=== PATIENT | female | born 1985 | race Caucasian/White ===

== ENCOUNTER 2018-08-02 15:07 | Inpatient (IN) ==
[2018-08-02 16:00] LABS: BASO# 0.03 X1000 (0.0-0.2); BASO% 0.4 % (0.0-0.8); EOS# 0.12 X1000 (0.0-0.7); EOS% 1.4 % (0.0-10.0); HEMATOCRIT 39.2 % (37.0-47.0); IMM GRAN# 0.01 X1000 (0.0-0.04); IMM GRAN% 0.1 % (0.0-0.5); LYMPH# 2.65 X1000 (1.2-3.4); LYMPH% 31.7 % (20.5-51.1); MCH 30.2 PG (27-31); MCHC 33.2 g/dL (33-37); MPV 10.4 FL (7.4-10.4); NEUT# 5.05 X1000 (1.4-6.5); NEUT% 60.4 % (42.2-75.2); PLT 284 X1000 (130-400); RBC 4.31 XMIL (4.2-5.4); RDW 12.7 % (11.5-14.5); WBC 8.36 X1000 (4.8-10.8)
[2018-08-02 16:29] LABS: BILIRUBIN URINE NEGATIVE (NEGATIVE); BLOOD URINE 3+ (NEGATIVE); CLARITY CLEAR (CLEAR); COLOR YELLOW; GLUCOSE URINE NEGATIVE (NEGATIVE); KETONE URINE TRACE mg/dL (NEGATIVE); LEUKOCYTES URINE TRACE (NEGATIVE); NITRITE URINE NEGATIVE (NEGATIVE); PROTEIN URINE NEGATIVE (NEGATIVE); SP GRAVITY URINE 1.015; UROBILINOGEN URINE NORMAL
[2018-08-02 16:29] LABS: AGAP 13; ALBUMIN 4.2 g/dL (3.5-5.0); ALKALINE PHOSPHATASE 49 U/L (32-104); BUN 11 mg/dL (8-22); CALCIUM 8.5 mg/dL (8.8-10.2); CHLORIDE 100 mmol/L (98-107); COSMO 280; CREATININE 0.7 mg/dL (0.5-0.9); ESTIMATED GFR > 60; GLUCOSE 119 mg/dL (70-104); GOT 15 U/L (10-30); GPT 7 U/L (10-36); LIPASE 23 U/L (13-60); POTASSIUM 3.5 mmol/L (3.5-5.1); SODIUM 140 mmol/L (136-145); TCO2 27 mmol/L (25-35); TOTAL PROTEIN 7.4 g/dL (6.3-8.3)
[2018-08-02 16:30] LABS: URINE CAST NONE SEEN /LPF; URINE RBC <10 /HPF (<10); URINE SOURCE CLEAN CATCH; URINE WBC <10 /HPF (<10); URINE YEAST NONE SEEN /HPF
[2018-08-02 16:32] LABS: URINE CRYSTAL NONE SEEN /HPF; URINE EPITHELIAL CELLS >10 /HPF (<10)
[2018-08-02 16:33] LABS: URINE BACTERIA 1+ /HFP
[2018-08-02] MEDS ORDERED: TORADOL IV ONE (16:36)
--- NOTE | 2018-08-02 16:45 | PROVIDER DOCUMENTATION ---
HPI-Abdominal Pain/GI Problem - General Chief Complaint: Abdominal Pain Stated Complaint: ABD PAIN Time Seen by Provider: 08/02/18 16:23 Allergies/Adverse Reactions: Patient Allergies Allergy/AdvReac Type Severity Reaction Status Date / Time No Known Allergies Allergy Verified 07/15/15 15:37 Home Medications: Home Medication List Medication Instructions Recorded Confirmed Last Taken Type NK [No Home Medications] 08/02/18 08/02/18 Unknown History - History of Present Illness-ABD Nature of Presenting Problems: reports that she has a sudden sharp radiating pain of her RLQ area to the right leg this morning. pain also radiates tto the right flank. no gross hematuria seen. no dysuria. she reports that she does have menstrual cramping before her period. had a normal BM. +nausea, chills. Review of Systems - Adult - REVIEW OF SYSTEMS - ADULT Constitutional: reports: no symptoms reported Eyes: reports: no symptoms reported Ears, Nose, Mouth & Throat: reports: no symptoms reported Cardiovascular: reports: no symptoms reported Respiratory: reports: no symptoms reported Gastrointestinal: reports: no symptoms reported Genitourinary: reports: no symptoms reported Musculoskeletal: reports: no symptoms reported Integumentary: reports: no symptoms reported Neurological: reports: no symptoms reported Psychiatric: reports: no symptoms reported Endocrine: reports: no symptoms reported Hematologic/Lymphatic: reports: no symptoms reported Allergic/Immunologic: reports: no symptoms reported All Other Systems: Reviewed and Negative Past History - Adult - PAST MEDICAL HISTORY-ADULT Review of Records: reports: Old Records Reviewed, Nursing Assessment Review, Medications Reviewed, Social history reviewed & non-contributory. Major Childhood Illnesses: reports: denies history Cardiovascular: reports: denies history Respiratory: reports: denies history Gastrointestinal: reports: denies history Obstetrical/Gynecological: reports: denies history Genitourinary: reports: denies history Musculoskeletal: reports: denies history Neurological: reports: denies history Endocrine/Immune: reports: denies history Other Conditions: reports: denies history - IMMUNIZATION STATUS Childhood Immunizations: See Nurse Assessment Flu Vaccine: See Nurse Assessment - FAMILY HISTORY Family History: reviewed, not pertinent - SOCIAL HISTORY Smoking: less than 1 pack/day Provider spent 3-5 mins advising pt. on dangers of tobacco.: Discussed manners to quit use, and f/u contacts for add'l counseling. Substance Use: none/never Alcohol Use Frequency: never Living Situation: family Physical Exam-General - PHYSICAL EXAM-ADULT Initial Vital Signs Reviewed: Yes - CONSTITUTIONAL General Appearance: appears well, alert, no apparent distress - EYES Eyes: PERRL/EOMI, pink conjunctivae - HEAD, EARS, NOSE, MOUTH & THROAT HENMT: normocephalic/atraumatic, moist mucous membranes - NECK Neck: non-tender, full range of motion - RESPIRATORY Respiratory: chest non-tender, lungs clear, normal breath sounds - CARDIOVASCULAR Cardiovascular: normal peripheral pulses, tachycardia - GASTROINTESTINAL (ABDOMEN) Abdominal Exam: normal bowel sounds, soft, no organomegaly, no pulsatile mass, tenderness (RLQ) - LYMPHATIC Lymphatic: no adenopathy - MUSCULOSKELETAL Back Exam: normal inspection, CVA tenderness (right) Extremity: normal range of motion, non-tender, normal gait Peripheral Pulses: radial (R): 2+, radial (L): 2+, dorsalis-pedis (R): 2+, dorsalis-pedis (L): 2+ - SKIN Integumentary: normal color, normal turgor, warm/dry - NEUROLOGIC Neurologic: grossly normal, no motor/sensory deficits Progress - PLAN OF CARE/RESULTS Progress/Plan/Lab Results: Vital Signs - 8 hr 08/02/18 15:17 Temperature 98.7 F Pulse Rate 94 H Respiratory Rate 18 Blood Pressure 125/81 O2 Sat by Pulse Oximetry 100 Laboratory Results - last 24 hr 08/02/18 08/02/18 08/02/18 15:20 15:20 15:20 WBC 8.36 RBC 4.31 Hgb 13.0 Hct 39.2 MCV 91.0 MCH 30.2 MCHC 33.2 RDW Std Deviation 12.7 Plt Count 284 MPV 10.4 Immature Gran % (Auto) 0.1 Neut % (Auto) 60.4 Lymph % (Auto) 31.7 [place] % (Auto) 6.0 Eos % (Auto) 1.4 Baso % (Auto) 0.4 Immature Gran # (Auto) 0.01 Neut # (Auto) 5.05 Lymph # (Auto) 2.65 [place] # (Auto) 0.50 Eos # (Auto) 0.12 Baso # (Auto) 0.03 Sodium 140 Potassium 3.5 Chloride 100 Carbon Dioxide 27 Anion Gap 13 BUN 11 Creatinine 0.7 Estimated GFR/1.73 m2 > 60 BUN/Creatinine Ratio 16 Glucose 119 H Calculated Osmolality 280 Calcium 8.5 L Total Bilirubin 0.20 AST 15 ALT 7 L Alkaline Phosphatase 49 Total Protein 7.4 Albumin 4.2 Globulin 3.0 Albumin/Globulin Ratio 1.0 Amylase 47 Lipase 23 Urine Source Urine Color Urine Clarity Urine pH Ur Specific [place] Urine Protein Urine Ketones Urine Blood Urine Nitrite Urine Bilirubin Urine Urobilinogen Urine Microscopic RBC Urine WBC Urine Microscopic WBC Ur Epithelial Cells Urine Crystals Urine Bacteria Urine Casts Urine Yeast Urine Glucose Urine Test 08/02/18 08/02/18 15:23 15:23 WBC RBC Hgb Hct MCV MCH MCHC RDW Std Deviation Plt Count MPV Immature Gran % (Auto) Neut % (Auto) Lymph % (Auto) [place] % (Auto) Eos % (Auto) Baso % (Auto) Immature Gran # (Auto) Neut # (Auto) Lymph # (Auto) [place] # (Auto) Eos # (Auto) Baso # (Auto) Sodium Potassium Chloride Carbon Dioxide Anion Gap BUN Creatinine Estimated GFR/1.73 m2 BUN/Creatinine Ratio Glucose Calculated Osmolality Calcium Total Bilirubin AST ALT Alkaline Phosphatase Total Protein Albumin Globulin Albumin/Globulin Ratio Amylase Lipase Urine Source CLEAN CATCH Urine Color YELLOW Urine Clarity CLEAR Urine pH 9.0 Ur Specific [place] 1.015 Urine Protein NEGATIVE Urine Ketones TRACE Urine Blood 3+ A Urine Nitrite NEGATIVE Urine Bilirubin NEGATIVE Urine Urobilinogen NORMAL Urine Microscopic RBC <10 Urine WBC TRACE A Urine Microscopic WBC <10 Ur Epithelial Cells >10 A Urine Crystals NONE SEEN Urine Bacteria 1+ Urine Casts NONE SEEN Urine Yeast NONE SEEN Urine Glucose NEGATIVE Urine Test NEGATIVE Orders Category Date Time Status CT ABD/PELVIS W/IV CONT ONLY [CT] Stat Exams 08/02/18 16:35 Ordered AMYLASE [CHEM] Stat Lab 08/02/18 15:20 Completed CBC WITH DIFF [HEME] Stat Lab 08/02/18 15:20 Completed COMPREHENSIVE METABOLIC PANEL [CHEM] Stat Lab 08/02/18 15:20 Completed LIPASE [CHEM] Stat Lab 08/02/18 15:20 Completed TEST-URINE [PREG] Stat Lab 08/02/18 15:[address] W/POSS RFLX CULT [URINALYSIS] Stat Lab 08/02/18 15:23 Completed URINE CULTURE [RM] Routine Lab 08/02/18 16:30 Ordered Ketorolac [Toradol] Med 08/02/18 16:36 Discontinued 30 mg IV NOW ONE [facility] [address] , [address], [place] [address] Department of Imaging Patient: SHANE LARSON ADM Date: 08/02/18 MR#: [id number] : 1985 ADM Status: REG ER Age/Sex: 32/F Room/Bed: Loc: P.ED Ordering Physician: Dana Cai MD Family Physician: Arabella Arana Reason for Procedure: ovarian torsion Signed EXAM: US PELVIC NON-OB COMPLETE INDICATION: ovarian torsion TECHNIQUE: COMPARISON: 07/15/2015 FINDINGS: The uterus is grossly normal in echotexture measuring 8.4 x 6.1 x 4.8 cm. The endometrium measures 4 mm in thickness. There are a couple of prominent ovarian cysts on the right that were also seen on a recent CT. The largest cyst contains internal debris. The largest cyst measures 3.8 cm. The smaller cyst measures 2.9 cm in the greatest dimensions. The right ovary including the cysts measures 7.3 cm in the greatest dimension. The left ovary measures 1.6 cm in the greatest dimension. There is some Doppler flow associated with the right ovary. There is Doppler flow associated with both ovaries. However, it it may be somewhat diminished on the right as compared to the left. No solid adnexal masses are appreciated. There is trace pelvic free fluid, usually physiologic. IMPRESSION: Prominent right ovarian cysts. Although the right ovary exhibits Doppler flow, it appears slightly less than the left. Mild intermittent torsion is possible in the right clinical scenario. Electronically signed by Ronn Chase 08/02/2018 7:43 PM 08/02/181942 Interpreting Physician: Ronn Chase MD Dictated Date/Time: 08/02/181934 cc: Dana Cai MD; Arabella Arana [facility] [address], [address], [place] [address] Department of Imaging Patient: SHANE LARSON ADM Date: 08/02/18 MR#: [id number] : 1985 ADM Status: REG ER Age/Sex: 32/F Room/Bed: Loc: P.ED Ordering Physician: Dana Cai MD Family Physician: Arabella Arana Reason for Procedure: nephroliathisis, pyeloneph, appendicitis ____ Signed EXAM: CT ABD/PELVIS W/IV CONT ONLY INDICATION: nephrolithiasis, pyeloneph, appendicitis TECHNIQUE: This exam was performed using automated exposure control, adjustment of mA or kV according to patient size, and/or use of iterative reconstruction technique. COMPARISON: None available. FINDINGS: The liver, gallbladder, spleen, pancreas, and adrenal glands are unremarkable. The kidneys are grossly unremarkable. There is no hydronephrosis. No perinephric stranding is identified. The urinary bladder appears normal. The appendix is normal. The remainder of the GI tract is unremarkable. There are a couple of large right pelvic cyst, likely ovarian. One measures up to 4.1 cm. The other measures up to 3.8 cm. The remainder of the reproductive tract is unremarkable as imaged. IMPRESSION: Two large right adnexal cysts as described. Unremarkable CT of the abdomen and pelvis, otherwise. Electronically signed by Ronn Chase 08/02/2018 6:13 PM 08/02/18 1813 Interpreting Physician: Ronn Chase MD Dictated Date/Time: 08/02/18 1807 cc: Dana Cai MD; Arabella Arana Result Diagrams: 08/02/18 15:20 08/02/18 15:20 - REASSESSMENT Reassessment #1 Time Reassessed: 19:00 (controlling with morphine. ) Status: improving Reassessment #2 Time Reassessed: 20:02 (ct shows less flow to the right ovary, spoke with flavor room worker service Dr. Benites recommended inpatient observation admitting by hospitalist service. Spoke with Dr. Chavira agrees admit patient. ) Departure - Departure Date of Disposition Decision: 08/02/18 Time of Disposition Decision: 16:44 DIAGNOSIS: Tobacco abuse disorder, Right lower quadrant abdominal pain Disposition: ADMITTED INPATIENT 09 Certified Medical Emergency: Emergent Condition: Stable Referrals and Follow-Ups: Arabella Arana [Primary Care Provider] - Call for Appoint. 1-2days - Critical Care Note This patient required my direct & personal management of CC.: No Attestation - Physician/ HUSSEIN Attestation Patient care was provided by Advanced Practice Provider:: No The physician spent face to face time with patient:: Yes Advanced Practice Provider documentation review:: Supervising physician onsite and consulted in the evaluation and care of this patient. The physician did have a face to face encounter with the patient.
[2018-08-02] MEDS ORDERED: MORPHINE IV ONE ×2 (17:50→23:39)
--- NOTE | 2018-08-02 18:15 | Diag Imaging Result Doc PS360 ---
EXAM: CT ABD/PELVIS W/IV CONT ONLY INDICATION: nephrolithiasis, pyeloneph, appendicitis TECHNIQUE: This exam was performed using automated exposure control, adjustment of mA or kV according to patient size, and/or use of iterative reconstruction technique. COMPARISON: None available. FINDINGS: The liver, gallbladder, spleen, pancreas, and adrenal glands are unremarkable. The kidneys are grossly unremarkable. There is no hydronephrosis. No perinephric stranding is identified. The urinary bladder appears normal. The appendix is normal. The remainder of the GI tract is unremarkable. There are a couple of large right pelvic cyst, likely ovarian. One measures up to 4.1 cm. The other measures up to 3.8 cm. The remainder of the reproductive tract is unremarkable as imaged. IMPRESSION: Two large right adnexal cysts as described. Unremarkable CT of the abdomen and pelvis, otherwise. Electronically signed by Ronn Chase 08/02/2018 6:13 PM
--- NOTE | 2018-08-02 19:45 | Diag Imaging Result Doc PS360 ---
EXAM: US PELVIC NON-OB COMPLETE INDICATION: ovarian torsion TECHNIQUE: COMPARISON: 07/15/2015 FINDINGS: The uterus is grossly normal in echotexture measuring 8.4 x 6.1 x 4.8 cm. The endometrium measures 4 mm in thickness. There are a couple of prominent ovarian cysts on the right that were also seen on a recent CT. The largest cyst contains internal debris. The largest cyst measures 3.8 cm. The smaller cyst measures 2.9 cm in the greatest dimensions. The right ovary including the cysts measures 7.3 cm in the greatest dimension. The left ovary measures 1.6 cm in the greatest dimension. There is some Doppler flow associated with the right ovary. There is Doppler flow associated with both ovaries. However, it it may be somewhat diminished on the right as compared to the left. No solid adnexal masses are appreciated. There is trace pelvic free fluid, usually physiologic. IMPRESSION: Prominent right ovarian cysts. Although the right ovary exhibits Doppler flow, it appears slightly less than the left. Mild intermittent torsion is possible in the right clinical scenario. Electronically signed by Ronn Chase 08/02/2018 7:43 PM
[2018-08-02] MEDS ORDERED: MORPHINE IV PRN (20:11)
[2018-08-03] MEDS: MORPHINE IV PRN ×2 (03:25→09:35)
[2018-08-03 07:46] VITALS: BP 92/56
--- NOTE | 2018-08-03 15:16 | CONSULTATION ---
DATE OF CONSULTATION: 08/03/2018 CHIEF COMPLAINTS: Abdominal pain. HISTORY OF PRESENT ILLNESS: The patient had episodes of intermittent sharp, stabbing pain yesterday which gradually worsened to severe. She came to the ER for her pain, had a CT exam that was negative for any acute abdomen, was considered unremarkable. She also underwent a pelvic ultrasound, which showed blood flow to both ovaries, a slight difference between the right versus left and a comment that stated the mild intermittent torsion is possible in the right clinical scenario. The patient stayed overnight for observation and has a much reduced pain level this morning. She states that her pain is right lower quadrant, travels to her back and down her leg, does so in intermittent fashion. She has not had any sharp pain since 3 a.m. PAST MEDICAL HISTORY: The patient denies. PAST SURGICAL HISTORY: She had a brain surgery at age 4, status post trauma to remove a hematoma. MEDICINE: She takes Ortho Tri-Cyclen Lo for control. ALLERGIES: She denies allergies. OB HISTORY: She is a G5, P2-0-3-2. She had 3 spontaneous abortions, 2 term vaginal deliveries. COMPUTER AIDE HISTORY: She has had abnormal Paps in the past. She was treated with cryo over a year ago. Her most recent [facility] She states it was normal. She has a long ago history of Chlamydia which was treated. No current STDs. SOCIAL HISTORY: She is in relationship with her fiance of 4 years. It is a monogamous relationship. She has 2 children. They live with her. She smokes half pack per day. She denies alcohol and drug use. FAMILY HISTORY: Noncontributory. REVIEW OF SYSTEMS: She has pain in the right lower quadrant which is waning, seems to be mild now. Review of the 11 other systems was negative. PHYSICAL EXAM: Constitutional: Vital signs are stable. The patient appears healthy, no distress. HEENT: She has normal extraocular motions grossly observed. Head is atraumatic, normocephalic. Neck: Normal appearance. Trachea is midline. Respiratory: Her lungs are clear to auscultation bilaterally. Breast: Deferred. Cardiovascular: She has normal heart sounds. No murmurs, gallops, or rubs. Abdomen: She has mild tenderness to the right lower quadrant. No guarding. No rebound tenderness. She has CVA tenderness on the right from about T8 down toward the sacrum. Lymphatic: She has no adenopathy. Musculoskeletal: No clubbing, no cyanosis. Skin: No rashes or ulcers. Psychiatric: Alert, oriented to person, place and time. Gynecologic: The patient has normal-appearing vulva. She has cervix which is nontender to palpation. She has mild tenderness of the uterus but no right or left adnexal tenderness. ASSESSMENT/PLAN: This is a 32-year-old G5, P2, with right lower quadrant pain, which has dramatically improved overnight. The patient is in good condition and okay to go home. Discussed her care with Dr. Chavira. She should follow up with a dispatcher service or work outpatient for evaluation of her cysts. One of them possibly has internal debris. Otherwise description seems to be that they are simple cysts. Patient was given precautions for returning to the ER with return of pain. cc: Yaakov Cueva,
--- NOTE | 2018-08-03 22:35 | HISTORY AND PHYSICAL ---
CHIEF COMPLAINT: Abdominal pain. HISTORY OF PRESENT ILLNESS: The patient is a 32-year-old female who presented to the ER with right lower quadrant pain radiating to her right flank. She denies any hematuria, dysuria, constipation, or melena. Notes that she does have frequent menstrual cramping. Denies any nausea, vomiting. Denies any recent chills. ALLERGIES: No known drug allergies. MEDICATIONS: No current medications. REVIEW OF SYSTEMS: As noted above. Positive abdominal pain, right lower quadrant, severe at times. History of menstrual cramping. Denies fevers, chills, cough, congestion or other upper respiratory type symptoms. Denies constipation, melena, hematochezia, dysuria. No frequency, urgency, or hematuria. Denies skin rashes, weight loss or weight gain. PAST MEDICAL HISTORY: Menstrual cramps, otherwise, no current medical condition. FAMILY HISTORY: Noncontributory. SOCIAL HISTORY: Patient does smoke approximately a pack a day. Does not drink or use illicit substances. PHYSICAL EXAMINATION: VITAL SIGNS: Reviewed temp 98.7 degrees, pulse 94, respiratory 18, BP 125/81, sat 100% on room air. GENERAL: The patient is awake, alert, very pleasant talk with. She is in no current respiratory distress. HEENT: Normocephalic. NECK: Supple. CARDIOVASCULAR: Regular rate. CHEST: Clear. ABDOMEN: Soft, tender in the right lower quadrant but mildly. No rebound, no guarding. EXTREMITIES: Moves all extremities. NEUROLOGIC: No focal changes. ASSESSMENT: 1. Right lower quadrant pain. She had an ultrasound that demonstrated may be possibly an ovarian torsion. 2. Chronic tobacco abuse. PLAN: The patient will be admitted to the hospital for observation overnight and will follow. We will consult [facility] HELPER for opinion. cc: Ryne Chavira MD
--- NOTE | 2018-08-04 04:16 | DISCHARGE SUMMARY ---
ADMISSION DATE: 08/02/2018 DISCHARGE DATE: 08/03/2018 DISCHARGE DIAGNOSES: 1. Right lower quadrant pain, much improved. 2. Chronic tobacco abuse. CONSULTATIONS: [facility]. PROCEDURES: None. BRIEF HOSPITAL COURSE: The patient is a 32-year-old female who presented to the hospital, treated in usual fashion. She was observed overnight. Thankfully, she had no further complications. On discharge, her abdominal pain is much improved. DISPOSITION: Patient will be discharged home. LURE MAKER feels as though she can followed as an outpatient. Her symptoms have improved. We will discharge her home with ibuprofen as well as [place] 5 #20. She will follow up outpatient with LURE MAKER or her primary care as needed. cc: Ryne Chavira MD
== END 2018-08-03 12:57 | disposition home or self-care (01) | DRG 392 ==
LOC: P.ED 15:07 → P.MEDSURG 20:33
PROVIDERS: ATTEND Family Medicine
CPT/HCPCS: 74177; 76856; 80053; 81001; 81025; 82150; 83690; 85025; 87088; 96374; 96375; 99285; J1885; J2270; Q9967